=== PATIENT | female | born 1995 | race Caucasian/White ===

== ENCOUNTER 2017-01-03 20:48 | Emergency (ER) | payer SELFPAY ==
[2017-01-03 21:56] VITALS: BP 121/85
== END 2017-01-03 21:56 | disposition home or self-care (01) ==
LOC: ED 20:48
DX: K08.89 Other specified disorders of teeth and supporting structures (principal); S03.2XXA Dislocation of tooth, initial encounter; X58.XXXA Exposure to other specified factors, initial encounter; Y93.89 Activity, other specified; Y92.89 Other specified places as the place of occurrence of the external cause; Y99.8 Other external cause status